=== PATIENT | female | born 1990 | race Caucasian/White ===

== ENCOUNTER 2020-09-04 11:01 | Emergency (ER) | payer OTHER, SELFPAY ==
[2020-09-04 11:13] VITALS: BP 133/83; PULSE 99; RESP 20; TEMP 36.7; O2SAT 100
--- NOTE | 2020-09-04 11:13 | ED.GENADULT ---
[facility] General Adult General Chief complaint: Skin/Abscess/Foreign Body Stated complaint: rash on both hands Source: patient Mode of arrival: ambulatory Limitations: no limitations History of Present Illness HPI narrative: 29 y/o female. PMH includes: None reported. Presents to clinic today with acute complaints of rash, blistering, and pruritus to bilateral hands. Manifestations are worsening in past 4-5 days per report. 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 No fever, chills. No open wounds. No facial or oral involvement. No dyspnea. Client notes worsening itching when using OTC hydrocortisone remedies. No additional acute c/o upon PE. Related Data Allergies Allergy/AdvReac Type Severity Reaction Status Date / Time No Known Allergies Allergy Verified 09/04/20 11:03 Review of Systems Review of Systems: Narrative: CONSTITUTIONAL: Denies fever, chills, sweats. EYES: Denies visual changes, redness, discharge. ENT: Denies rhinorrhea, congestion, sore throat, otalgia. CARDIOVASCULAR: Denies chest pain, palpitations, edema. RESPIRATORY: Denies dyspnea, wheezing, cough GASTROINTESTINAL: Denies abdominal pain, nausea, vomiting, diarrhea. GENITOURINARY: Denies dysuria, hematuria, abnormal discharge SKIN: Positive Rash & itching to bilateral hands. MUSCULOSKELETAL: Denies acute back pain, joint pain, or myalgia. NEUROLOGIC: Denies numbness, or focal weakness. PSYCHIATRIC: Denies anxiety or depression. Constitutional: Constitutional: Reports as per [facility] Social History Social History Gender identity (if verbalized by the patient): Female Exam Narrative: Exam Narrative: GENERAL: This is a well-nourished, well-developed patient, in no apparent distress. HEAD: normocephalic, atraumatic. EYES: PERRL. Sclera clear/white. Vision is grossly intact. EARS: External ears normal, auditory canals clear and without drainage, TMs normal without perforation. Hearing grossly intact. NOSE: External nose normal with no obvious nasal discharge, nares without redness, no rhinorrhea. THROAT: Mucous membranes moist, posterior pharynx clear. NECK: Neck supple, non-tender without lymphadenopathy, masses or thyromegaly. CARDIOVASCULAR: Regular rate and rhythm without murmurs, gallops, or rubs. RESPIRATORY: Clear to auscultation. Breath sounds equal bilaterally. No wheezes, rales, or rhonchi. GASTROINTESTINAL: Abdomen soft, non-tender, nondistended. Bowel sounds are active. No hepato-splenomegaly, or palpable masses. No guarding. SKIN: warm, intact with good turgor. Bilateral hands exhibit scattered small sores that are crusted. Located to palms only. Positive yellowish-brown crust, with mild serosanguineous discharge. No deep tissue involvement. No additional areas of integumentary involvement. . NEURO: awake, alert, and oriented to person, place and time. There were no obvious focal neurologic abnormalities. Steady gait EXTREMITIES: Normal range of motion. No edema. No calf tenderness. Negative Homans sign bilaterally. BACK: Nontender without deformity or crepitance. No flank tenderness. [place] Coma Scale Eye Opening: Spontaneous 4 [place] Coma Scale Motor: Obeys Commands 6 [place] Coma Scale Verbal: Oriented 5 Course Vital Signs Vital signs: Vital Signs Temperature 36.7 C 09/04/20 11:13 Pulse Rate 99 09/04/20 11:13 Respiratory Rate 09/04/20 11:13 Blood Pressure 133/83 09/04/20 11:13 Pulse Oximetry 100 09/04/20 11:13 Temperature 36.7 C 09/04/20 11:17 Pulse Rate 99 09/04/20 11:17 Respiratory Rate 09/04/20 11:17 Blood Pressure 133/83 09/04/20 11:17 Pulse Oximetry 100 09/04/20 11:17 Medical Decision Making Differential Diagnosis Differential Diagnosis: Linear immunoglobulin A bullous dermatosis. Bullous pemphigoid reactions. Bullous lupus erythematosus. Vital Signs Vital Signs: Vit
[2020-09-04 11:17] VITALS: BP 133/83; PULSE 99; RESP 20; TEMP 36.7; O2SAT 100
== END 2020-09-04 11:27 | disposition home or self-care (01) ==
PROVIDERS: Emergency Provider Nurse Practitioner Adult Health
DX: L01.00 Impetigo, unspecified (principal)
CPT/HCPCS: 99213; G0463